=== PATIENT | female | born 1965 ===

== ENCOUNTER 2017-08-09 08:12 | Emergency (ER) | payer OTHER ==
[2017-08-09 08:12] VITALS: BMI 26.5
[2017-08-09 08:26] VITALS: O2SAT 98
--- NOTE | 2017-08-09 09:09 | C.PDOC ---
History Of Present Illness 51 y/o F c PMHx Lupus p/w L sided flank pain radiating to L sided abdomen, worse with movement, severe, began same day as abdominal exercising. Denies fever, chills, hematuria, vaginal bleeding, dysuria, nausea, vomiting. Time Seen by Provider: 08/09/17 08:25 Chief Complaint (Nursing): Back Pain Past Medical History Vital Signs: Last Vital Signs Temp 98.8 F 08/09/17 08:17 Pulse 57 L 08/09/17 08:17 Resp 20 08/09/17 08:17 BP 109/55 L 08/09/17 08:17 Pulse Ox 98 08/09/17 09:10 - Medical History PMH: Anemia Denies: Chronic Kidney Disease Surgical History: (x 1) - [facility] Procedures INSPECTION OF BLADDER, ENDO (09/07/15) RESECTION OF BI FALLOPIAN TUBE, VIA OPENING W PERC ENDO (09/07/15) RESECTION OF UTERUS, VIA OPENING W PERC ENDO (09/07/15) ROBOTIC ASSISTED PROCEDURE OF TRUNK, PERC ENDO APPROACH (09/07/15) Family History: States: No Known Family Hx - Social History Hx Alcohol Use: No Hx Substance Use: No Review Of Systems Except As Marked, All Systems Reviewed And Found Negative. Constitutional: Negative for: Fever Respiratory: Negative for: Shortness of Breath Physical Exam - Physical Exam Additional Physical Exam Comments: Gen: In distress when sitting up Head: NC/AT Eyes: No scleral icterus ENT: MMM Neck: Supple Thorax: Tenderness of lower L rib cage CV: Regular rate Lungs: CTA b/l Abd: Soft, NT Back: No midline tenderness Skin: No rash Extremities: No edema Neuro: Alert, no focal deficit ED Course And Treatment O2 Sat by Pulse Oximetry: 98 Medical Decision Making Medical Decision Making: Differential includes rib fracture, nephrolithiasis, UTI, musclar strain/ sprain. Evaluate with urine, rib series, NSAIDs, reassess. UA no RBCs or WBCs. Patient feels better. XR no fracture. Disposition - Disposition Disposition: HOME/ ROUTINE Disposition Time: 11:00 Condition: STABLE Prescriptions: Ibuprofen [Motrin] 1 tab PO Q6 #30 tab Methocarbamol [Robaxin-750] 1 tab PO Q8H #12 tablet Instructions: Muscle Strain Forms: [employer] (Turkish) - Clinical Impression Clinical Impression: Strain of thoracic region
[2017-08-09 09:22] LABS: HCG,QUALITATIVE URINE NEGATIVE (NEGATIVE)
[2017-08-09 09:29] LABS: URINE BILIRUBIN NEGATIVE (NEGATIVE); URINE BLOOD NEGATIVE (NEGATIVE); URINE CLARITY Clear (Clear); URINE COLOR Yellow (YELLOW); URINE GLUCOSE (UA) NORMAL (Normal); URINE LEUKOCYTE ESTERASE NEG Leu/uL (Negative); URINE PROTEIN NEGATIVE (NEGATIVE); URINE UROBILINOGEN NORMAL mg/dL (0.2-1.0)
[2017-08-09 11:46] VITALS: BP 117/69; PULSE 78; RESP 18; TEMP 98
--- NOTE | 2017-08-09 12:02 | RAD ---
PROCEDURE: Radiographs of the Chest and Left Ribs. HISTORY: L sided thoracic pain COMPARISON: None available. TECHNIQUE: Frontal radiograph of the chest and multiple oblique radiographs of the left ribs were obtained. FINDINGS: LEFT RIBS: No fracture or focal lesion visualized. LUNGS: Clear. PLEURA: No pneumothorax or pleural fluid. CARDIOVASCULAR: Normal sized heart. No pulmonary vascular congestion. OTHER FINDINGS: None. IMPRESSION: Unremarkable radiographs of the chest and left ribs. No left rib fracture.
== END 2017-08-09 11:46 | disposition home or self-care (01) ==
LOC: C.ER 08:12
DX: S29.012A Strain of muscle and tendon of back wall of thorax, initial encounter (principal); X58.XXXA Exposure to other specified factors, initial encounter
CPT/HCPCS: 71101; 81001; 84703; 96372; 99284; J1885

== ENCOUNTER 2017-08-11 09:11 | Emergency (ER) | payer OTHER ==
[2017-08-11 09:11] VITALS: BMI 26.5
[2017-08-11 09:13] VITALS: TEMP 98.1
[2017-08-11 09:44] LABS: SQUAMOUS EPITHIAL 9 /hpf (0-5); URINE BACTERIA OCC (<OCC); URINE BILIRUBIN NEGATIVE (NEGATIVE); URINE BLOOD NEGATIVE (NEGATIVE); URINE CLARITY Hazy (Clear); URINE COLOR Yellow (YELLOW); URINE GLUCOSE (UA) NORMAL (Normal); URINE LEUKOCYTE ESTERASE NEG Leu/uL (Negative); URINE PROTEIN NEGATIVE (NEGATIVE); URINE UROBILINOGEN NORMAL mg/dL (0.2-1.0)
[2017-08-11] MEDS ORDERED: Sodium Chloride 0.9% 500 ML IV ONE (09:50)
[2017-08-11] MEDS ORDERED: Sodium Chloride 0.9% 1,000 ML ONE (10:04)
[2017-08-11 10:20] LABS: BASO % 0.8 % (0.0-2.0); EOS # 0.1 K/uL (0.0-0.7); EOS % 1.5 % (0.0-4.0); HEMOGLOBIN 13.5 g/dL (11.0-16.0); LYMPH # 1.1 K/uL (1.0-4.3); LYMPH % 27.6 % (20.0-40.0); MEAN CELL VOLUME 93.3 fL (81.0-99.0); MEAN CORPUSCULAR HEMOGLOBIN 31.1 pg (27.0-31.0); MEAN CORPUSCULAR HGB CONC 33.4 g/dL (33.0-37.0); MONO # 0.4 K/uL (0.0-0.8); MONO % 9.8 % (0.0-10.0); NEUT # 2.4 K/uL (1.8-7.0); NEUT % 60.3 % (50.0-75.0); RBC 4.33 Mil/uL (3.80-5.20); RED CELL DISTRIBUTION WIDTH 14.9 % (11.5-14.5)
--- NOTE | 2017-08-11 10:21 | C.PDOC ---
History Of Present Illness 51 y/o female with history of hysterectomy and lupus presents to ED with c/o pelvic pain described as sharp developed earlier this morning. Patient admits to nausea and dizziness, denies fever, chills, vaginal bleeding, dysuria, back pain or any other complaints at this time. Time Seen by Provider: 08/11/17 09:29 Chief Complaint (Nursing): Abdominal Pain History Per: Patient History/Exam Limitations: no limitations Onset/Duration Of Symptoms: Hrs Current Symptoms Are (Timing): Still Present Pain Scale Rating Of: 6 Location Of Pain/Discomfort: Suprapubic Radiation Of Pain To:: None Quality Of Discomfort: "Pain" Associated Symptoms: Nausea Alleviating Factors: None Last Bowel Movement: Today Past Medical History Reviewed: Historical Data, Nursing Documentation, Vital Signs Vital Signs: Last Vital Signs Temp 98.1 F 08/11/17 09:13 Pulse 48 L 08/11/17 11:35 Resp 17 08/11/17 11:35 BP 120/66 08/11/17 11:35 Pulse Ox 101 H 08/11/17 12:08 - Medical History PMH: Anemia Surgical History: (x 1) Other Surgeries: Hysterectomy - [facility] Procedures INSPECTION OF BLADDER, ENDO (09/07/15) RESECTION OF BI FALLOPIAN TUBE, VIA OPENING W PERC ENDO (09/07/15) RESECTION OF UTERUS, VIA OPENING W PERC ENDO (09/07/15) ROBOTIC ASSISTED PROCEDURE OF TRUNK, PERC ENDO APPROACH (09/07/15) Family History: States: No Known Family Hx - Social History Hx Alcohol Use: No Hx Substance Use: No Review Of Systems Except As Marked, All Systems Reviewed And Found Negative. Constitutional: Negative for: Fever, Chills Gastrointestinal: Positive for: Nausea. Negative for: Vomiting Genitourinary: Positive for: Pelvic Pain. Negative for: Dysuria, Hematuria, Vaginal Bleeding Neurological: Positive for: Dizziness Physical Exam - Physical Exam Appears: Non-toxic, No Acute Distress Skin: Warm, Dry, No Rash Head: Atraumatic, Normacephalic Eye(s): bilateral: Normal Inspection, PERRL, EOMI Oral Mucosa: Moist Neck: Normal ROM, Supple Cardiovascular: Rhythm Regular, No Friction Rub, No Murmur Respiratory: Normal Breath Sounds, No Rales, No Rhonchi, No Wheezing Gastrointestinal/Abdominal: Soft, Tenderness (mild to moderate suprapubic ), No Guarding, No Rebound Back: No CVA Tenderness, No Paraspinal Tenderness Neurological/Psych: Oriented x3, Normal Speech ED Course And Treatment - Laboratory Results Result Diagrams: 08/11/17 10:16 08/11/17 10:16 O2 Sat by Pulse Oximetry: 100 (RA) Pulse Ox Interpretation: Normal Medical Decision Making Medical Decision Making: On re-exam, the patient reports improvement of symptoms. Lungs are CTA, heart is RRR, abdomen is soft, non-tender and tolerating PO well. Ambulatory in the ED with steady gait. Follow up with the medical doctor within 1-2 days, return if worsened. Disposition - Disposition Referrals: Terry Christensen MD [Staff Provider] - Disposition: HOME/ ROUTINE Disposition Time: 12:04 Condition: STABLE Additional Instructions: Follow up with the medical doctor within 1-2 days. Return if worsened. Prescriptions: Naproxen [Naprosyn] 500 mg PO BID #20 tab Instructions: Acute Pelvic Pain (DC) Forms: [employer] (Cape Verdean) - Clinical Impression Clinical Impression: Abdominal pain - PA / [employer] / Resident Statement MD/DO has reviewed & agrees with the documentation as recorded. - Scribe Statement The provider has reviewed the documentation as recorded by the Aj Montes De Oca All medical record entries made by the Aj were at my direction and personally dictated by me. I have reviewed the chart and agree that the record accurately reflects my personal performance of the history, physical exam, medical decision making, and the department course for this patient. I have also personally directed, reviewed, and agree with the discharge instructions and disposition.
[2017-08-11 10:32] LABS: CALCIUM 9.5 mg/dl (8.6-10.4); GFR AFRICAN-AMERICAN > 60; GFR NON-AFRICAN AMERICAN > 60; LIPASE 148 U/L (23-300)
[2017-08-11 10:47] LABS: ALB/GLOB RATIO 1.4 (1.0-2.1); ALBUMIN 4.6 g/dL (3.5-5.0); ALT/SGPT 29 U/L (9-52); AST/SGOT 44 U/L (14-36); BLOOD UREA NITROGEN 15 mg/dL (7-17)
--- NOTE | 2017-08-11 11:26 | US ---
HISTORY: hysterectomy, ovaries intact, b/l pelvic pain, COMPARISON: None available. TECHNIQUE: None transvaginal and transabdominal FINDINGS: UTERUS: Status post partial hysterectomy. ENDOMETRIUM: Hysterectomy CERVIX: Cervix not visualized. RIGHT OVARY: Measures 2.6 x 1.0 x 2.3 cm. No solid mass. Normal flow. LEFT OVARY: Measures 2.3 x 0.9 x 2.0 cm. No solid mass. Normal flow. FREE FLUID: No significant free fluid noted. OTHER FINDINGS: None. IMPRESSION: Status post hysterectomy. Cervix not visualized. Normal ovaries. Otherwise unremarkable.
[2017-08-11 11:35] VITALS: BP 120/66; PULSE 48; RESP 17
[2017-08-14 14:04] VITALS: O2SAT 100
== END 2017-08-11 12:25 | disposition home or self-care (01) ==
LOC: C.ER 09:11
DX: R10.30 Lower abdominal pain, unspecified (principal)
CPT/HCPCS: 76830; 80053; 81001; 83690; 85025; 96374; 96375; 99284; J1885; J2405; J7040